=== PATIENT | male | born 1995 | race Caucasian/White ===

== ENCOUNTER 2017-06-08 10:30 | Inpatient (IN) | payer BC ==
[~2017-06-08] VITALS: Ht 182.9 cm; Wt 76.4 kg
[2017-06-08 10:31] VITALS: BP 132/79; PULSE 66; RESP 16; TEMP 98.7; O2SAT 100
[2017-06-08] MEDS ORDERED: CELE20TA PO (10:39)
--- NOTE | 2017-06-08 10:57 | PD ---
HPI Chief Complaint: Psychiatric Symptoms Time Seen by Provider: 10:41 Travel History International Travel<30 days: No Contact w/Intl Traveler<30days: No Traveled to known affect area: No History of Present Illness HPI Patient is a 22-year-old male who presents to emergency room for psychiatric evaluation. Patient reports that he has had long-standing depression due to his basic training. Patient reports that he has been seeing a therapist at [facility], Maribel Sepulveda and has been taking Celexa. Patient reports that he continues to have increased depression and negative thoughts. Patient was sent to the emergency room by Maribel Sepulveda for inpatient admission for psychiatric evaluation. Patient reports suicidal thoughts with no active suicidal plans. He denies any homicidal thoughts. Patient denies use of drugs or alcohol PFS Past Medical History Depression: Yes Past Surgical History Other Surgery: Yes (Vanessa SKINNER ) Social History Alcohol Use: No Tobacco Use: No Substance Use: No Allergies-Medications (Allergen,Severity, Reaction): Uncoded Allergies: SEAFOOD (Allergy, Severe, Anaphylaxis, 06/08/17) Reported Meds & Prescriptions Reported Meds & Active Scripts Active Reported Celexa (Citalopram Hydrobromide) 20 Mg Tab 20 Mg PO DAILY Review of Systems General / Constitutional: No: Fever Eyes: No: Visual changes HENT: No: Headaches Cardiovascular: No: Chest Pain or Discomfort Respiratory: No: Shortness of Breath Gastrointestinal: No: Abdominal Pain Genitourinary: No: Dysuria Musculoskeletal: No: Pain Skin: No Rash Neurologic: No: Weakness Psychiatric: Positive: Depression, Suicidal Ideations, No: Substance Abuse, Homicidal Ideation Endocrine: No: Polydipsia Hematologic/Lymphatic: No: Easy Bruising Physical Exam Narrative GENERAL: NAD SKIN: Focused skin assessment warm/dry. HEAD: Atraumatic. Normocephalic. EYES: Pupils equal and round. No scleral icterus. No injection or drainage. ENT: No nasal bleeding or discharge. Mucous membranes pink and moist. NECK: Trachea midline. No JVD. CARDIOVASCULAR: Regular rate and rhythm. No murmur appreciated. RESPIRATORY: No accessory muscle use. Clear to auscultation. Breath sounds equal bilaterally. GASTROINTESTINAL: Abdomen soft, non-tender, nondistended. Hepatic and splenic margins not palpable. MUSCULOSKELETAL: No obvious deformities. No clubbing. No cyanosis. No edema. NEUROLOGICAL: Awake and alert. No obvious cranial nerve deficits. Motor grossly within normal limits. Normal speech. PSYCHIATRIC: Flat mood and affect; +SI, -HI Data Data Last Documented VS Vital Signs Date Time Temp Pulse Resp B/P (MAP) Pulse Ox O2 Delivery O2 Flow Rate FiO2 06/08/17 10:43 16 06/08/17 10:31 98.7 66 132/79 (96) 100 Room Air Orders Orders Complete Blood Count With Diff (06/08/17 10:41) Comprehensive Metabolic Panel (06/08/17 10:41) Psych Screen (06/08/17 10:41) Drug Screen, Random Urine (06/08/17 10:41) Alcohol (Ethanol) (06/08/17 10:41) Salicylates (Aspirin) (06/08/17 10:41) Tylenol (Acetaminophen) (06/08/17 10:41) Labs Laboratory Tests Test 06/08/17 10:45 06/08/17 10:50 Urine Opiates Screen NEG Urine Barbiturates Screen NEG Urine Amphetamines Screen NEG Urine Benzodiazepines Screen NEG Urine Cocaine Screen NEG Urine Cannabinoids Screen NEG White Blood Count 5.0 TH/MM3 Red Blood Count 5.35 MIL/MM3 Hemoglobin 14.2 GM/DL Hematocrit 43.1 % Mean Corpuscular Volume 80.7 FL Mean Corpuscular Hemoglobin 26.6 PG Mean Corpuscular Hemoglobin Concent 33.0 % Red Cell Distribution Width 13.5 % Platelet Count 148 TH/MM3 Mean Platelet Volume 9.4 FL Neutrophils (%) (Auto) 50.3 % Lymphocytes (%) (Auto) 36.0 % Monocytes (%) (Auto) 8.6 % Eosinophils (%) (Auto) 4.3 % Basophils (%) (Auto) 0.8 % Neutrophils # (Auto) 2.5 TH/MM3 Lymphocytes # (Auto) 1.8 TH/MM3 Monocytes # (Auto) 0.4 TH/MM3 Eosinophils # (Auto) 0.2 TH/MM3 Basophils # (Auto) 0.0 TH/MM3 CBC Comment DIFF FINAL Differential Comment Blood Urea Nitrogen 11 MG/DL Creatinine 1.08 MG/DL Random Glucose 90 MG/DL Total Protein 7.4 GM/DL Albumin 4.3 GM/DL Calcium Level 9.1 MG/DL Alkaline Phosphatase 100 U/L Aspartate Amino Transf (AST/SGOT) 11 U/L Alanine Aminotransferase (ALT/SGPT) 18 U/L Total Bilirubin 0.2 MG/DL Sodium Level 138 MEQ/L Potassium Level 4.0 MEQ/L Chloride Level 104 MEQ/L Carbon Dioxide Level 28.3 MEQ/L Anion Gap 6 MEQ/L Estimat Glomerular Filtration Rate 85 ML/MIN Salicylates Level LESS THAN 1.7 MG/DL Acetaminophen Level LESS THAN 2.0 MCG/ML Ethyl Alcohol Level LESS THAN 3 MG/DL MDM Medical Decision Making Medical Screen Exam Complete: Yes Emergency Medical Condition: Yes Medical Record Reviewed: Yes Interpretation(s) Vital Signs Date Time Temp Pulse Resp B/P (MAP) Pulse Ox O2 Delivery O2 Flow Rate FiO2 06/08/17 10:43 16 06/08/17 10:31 98.7 66 16 132/79 (96) 100 Room Air Differential Diagnosis Depression, suicidal thoughts Narrative Course 22-year-old male who presents to emergency room at request of Maribel Sepulveda, patient's therapist, for inpatient psychiatric evaluation for suicidal ideations. Screening labs were ordered, patient was placed under Tang acts while in the emergency room. Plan to clear him for psychiatric evaluation. Patient contracts for safety at this time. Laboratory Tests Test 06/08/17 10:45 06/08/17 10:50 Urine Opiates Screen NEG (NEG) Urine Barbiturates Screen NEG (NEG) Urine Amphetamines Screen NEG (NEG) Urine Benzodiazepines Screen NEG (NEG) Urine Cocaine Screen NEG (NEG) Urine Cannabinoids Screen NEG (NEG) White Blood Count 5.0 TH/MM3 (4.0-11.0) Red Blood Count 5.35 MIL/MM3 (4.50-5.90) Hemoglobin 14.2 GM/DL (13.0-17.0) Hematocrit 43.1 % (39.0-51.0) Mean Corpuscular Volume 80.7 FL (80.0-100.0) Mean Corpuscular Hemoglobin 26.6 PG (27.0-34.0) Mean Corpuscular Hemoglobin Concent 33.0 % (32.0-36.0) Red Cell Distribution Width 13.5 % (11.6-17.2) Platelet Count 148 TH/MM3 (150-450) Mean Platelet Volume 9.4 FL (7.0-11.0) Neutrophils (%) (Auto) 50.3 % (16.0-70.0) Lymphocytes (%) (Auto) 36.0 % (9.0-44.0) Monocytes (%) (Auto) 8.6 % (0.0-8.0) Eosinophils (%) (Auto) 4.3 % (0.0-4.0) Basophils (%) (Auto) 0.8 % (0.0-2.0) Neutrophils # (Auto) 2.5 TH/MM3 (1.8-7.7) Lymphocytes # (Auto) 1.8 TH/MM3 (1.0-4.8) Monocytes # (Auto) 0.4 TH/MM3 (0-0.9) Eosinophils # (Auto) 0.2 TH/MM3 (0-0.4) Basophils # (Auto) 0.0 TH/MM3 (0-0.2) CBC Comment DIFF FINAL Differential Comment Blood Urea Nitrogen 11 MG/DL (7-18) Creatinine 1.08 MG/DL (0.60-1.30) Random Glucose 90 MG/DL (74-106) Total Protein 7.4 GM/DL (6.4-8.2) Albumin 4.3 GM/DL (3.4-5.0) Calcium Level 9.1 MG/DL (8.5-10.1) Alkaline Phosphatase 100 U/L (45-117) Aspartate Amino Transf (AST/SGOT) 11 U/L (15-37) Alanine Aminotransferase (ALT/SGPT) 18 U/L (12-78) Total Bilirubin 0.2 MG/DL (0.2-1.0) Sodium Level 138 MEQ/L (136-145) Potassium Level 4.0 MEQ/L (3.5-5.1) Chloride Level 104 MEQ/L (98-107) Carbon Dioxide Level 28.3 MEQ/L (21.0-32.0) Anion Gap 6 MEQ/L (5-15) Estimat Glomerular Filtration Rate 85 ML/MIN (>89) Salicylates Level LESS THAN 1.7 MG/DL Acetaminophen Level LESS THAN 2.0 MCG/ML Ethyl Alcohol Level LESS THAN 3 MG/DL (0-5) Patient medically cleared for psychiatric evaluation at this time. Lisset Marley DO Jun 08, 2017 10:57
[2017-06-08 11:15] LABS: AUTOMATED NEUTROPHIL # 2.5 TH/MM3 (1.8-7.7); BASOPHIL % 0.8 % (0.0-2.0); EOSINOPHIL # 0.2 TH/MM3 (0-0.4); EOSINOPHIL % 4.3 % (0.0-4.0); HEMATOCRIT 43.1 % (39.0-51.0); HEMO FLAGS DIFF FINAL; LYMPHOCYTE # 1.8 TH/MM3 (1.0-4.8); MEAN CELL VOLUME 80.7 FL (80.0-100.0); MEAN CORPUSCULAR HEMOGLOBIN 26.6 PG (27.0-34.0); MONO % 8.6 % (0.0-8.0); NEUT % 50.3 % (16.0-70.0); PLATELET COUNT 148 TH/MM3 (150-450); RED BLOOD COUNT 5.35 MIL/MM3 (4.50-5.90); RED CELL DISTRIBUTION WIDTH 13.5 % (11.6-17.2)
[2017-06-08 11:47] LABS: ANION GAP 6 MEQ/L (5-15); AST (GOT) 11 U/L (15-37); BICARBONATE 28.3 MEQ/L (21.0-32.0); BLOOD UREA NITROGEN 11 MG/DL (7-18); CHLORIDE 104 MEQ/L (98-107); GLOMERULAR FILTRATION RATE 85 ML/MIN (>89); SODIUM (NA) 138 MEQ/L (136-145)
[2017-06-08 11:49] LABS: ALCOHOL LESS THAN 3 MG/DL (0-5)
[2017-06-08 11:51] LABS: ALKALINE PHOSPHATASE 100 U/L (45-117); ALT (GPT) 18 U/L (12-78); TOTAL BILIRUBIN ADULT 0.2 MG/DL (0.2-1.0)
[2017-06-08 11:53] LABS: ACETAMINOPHEN LESS THAN 2.0 MCG/ML (10.0-30.0)
[2017-06-08 14:06] VITALS: BP 138/84; PULSE 68; RESP 18; TEMP 98.6; O2SAT 100
[2017-06-08] MEDS ORDERED: ALUMINUM/MAGNESIUM/SIMETH 30 ML CUP PO PRN (15:15)
[2017-06-08] MEDS ORDERED: MAGNESIUM HYDROXIDE SUSP 30 ML CUP PO PRN (15:15)
[2017-06-08] MEDS ORDERED: LORazepam 1 MG TAB PO PRN (15:15)
[2017-06-08] MEDS ORDERED: LORazepam 2 MG/ML VIAL IM PRN (15:15)
[2017-06-08] MEDS ORDERED: ACETAMINOPHEN 325 MG TAB PO PRN (15:15)
[2017-06-08] MEDS ORDERED: hydrOXYzine HCL 50 MG TAB PO PRN (15:15)
--- NOTE | 2017-06-08 15:26 | HHI.HP ---
Provisional Diagnosis Admission Date June 08, 2017 [place]. Major depression, recurrent, severe Certification of Person's Competence To Provide Express and Informed Consent I have personally examined Willem Yeager , a person being served at [facility] on, Jun 08, 2017 15:16. Express and informed consent means consent voluntarily given in writing, by a competent person, after sufficient explanation and disclosure of the subject matter involved to enable the person to make a knowing and willful decision without any element of force, fraud, deceit, duress, or other form of constraint or coercion. This person is 18 years of age or older, is not now known to be incompetent to consent to treatment with a guardian advocate, and does not have a health care surrogate or proxy currently making medical treatment decisions. I have found this person to be one of the following: [x] Competent to provide express and informed consent, as defined above, for voluntary admission to this facility and is competent to provide express and informed consent for treatment. He/she has the consistent capacity to make well reasoned, willful, and knowing decisions concerning his or her medical or mental health treatment. The person fully and consistently understands the purpose of the admission for examination/placement and is fully capable of personally exercising all rights assured under [place] Incompetent to provide express and informed consent to voluntary admission, and this is incompetent to provide express and informed consent to treatment. The person must be transferred to involuntary status and a petition for a guardian advocate filed with the Circuit Court. [] Refusing to provide express and informed consent to voluntary admission but is competent to provide express and informed consent for treatment. The person must be discharged or transferred to involuntary status. Form shall be completed within 24 hours of a person's arrival at the receiving facility and filed in the clinical record of each person: 1. Admitted on a voluntary basis 2. Permitted to provide express and informed consent to his/her own treatment 3. Allowed to transfer from involuntary to voluntary status 4. Prior to permitting a person to consent to his or her own treatment after having been previously found incompetent to consent to treatment. History of Present Illness Capacity: Has Capacity HPI 22-year-old male Tang acted by one of our emergency department physicians for depression with suicidal ideation. 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 Over the last 3 months he has been increasingly depressed with frequent if not daily suicidal thoughts. He has come home to [place], where his parents now live in [facility] [address] [place]. He is not use to their new home, where they have resided for 3 months. He has not spoken to them about the specifics of his depression as he does not wish to worry them. However, he describes multiple symptoms of depression including depressed mood, anxiety, suicidal ideation, loss of energy, loss of self-esteem, feelings of confusion or inability to concentrate, social withdrawal, anhedonia, feelings of hopelessness and helplessness, sleep disturbance and appetite disturbance. He is unable to contract for safety at this time, although he is wanting help. The patient was started on 10 mg of Celexa approximately 6 weeks ago. He was eventually moved up to 20 mg of Celexa, which he believes he has been taking for 2-3 weeks. It has not made a significant difference and this physician read a letter written by the therapist of the patient at [facility], because of her concern. The patient does not use drugs or alcohol. He was rejected recently by a girl he was interested in dating. Review of Systems Psychiatric: COMPLAINS OF: Anxiety, Depression, Suicidal Ideation Except as stated in HPI: all other systems reviewed are Neg Past Psych History Psychological trauma history No known psychological trauma. Violence risk - others (6 mos) Minimal Violence risk - self (6 mos) High Substance Abuse History Drugs/Alcohol past 12 months Denied Past Family Social History Uncoded Allergies: SEAFOOD (Allergy, Severe, Anaphylaxis, 06/08/17) Reported Medications Citalopram (Celexa) 20 Mg Tab, 20 MG PO DAILY for Control Depression, #30 TAB 0 Refills 06/08/17 Family Psych History Positive for anxiety disorders. Social History Raised in [place]. Currently a [employer]in at [employer]. Does not use or abuse alcohol and drugs. Is not currently employed. Has 2 siblings. Both parents are and live in [facility] [place]. Father is a radiologist chief of breast imaging. Patient's Strengths (min. 2) Verbal and resilient. Physical Exam GENERAL: SKIN: Warm and dry. HEAD: Normocephalic. EYES: No scleral icterus. No injection or drainage. NECK: Supple, trachea midline. No JVD or lymphadenopathy. CARDIOVASCULAR: Regular rate and rhythm without murmurs, gallops, or rubs. RESPIRATORY: Breath sounds equal bilaterally. No accessory muscle use. GASTROINTESTINAL: Abdomen soft, non-tender, nondistended. MUSCULOSKELETAL: No cyanosis, or edema. BACK: Nontender without obvious deformity. No CVA tenderness. Vital Signs Vital Signs Date Time Temp Pulse Resp B/P (MAP) Pulse Ox O2 Delivery O2 Flow Rate FiO2 06/08/17 14:06 98.6 68 18 138/84 (102) 100 Room Air Lab Results Test 06/08/17 10:45 06/08/17 10:50 Urine Opiates Screen NEG Urine Barbiturates Screen NEG Urine Amphetamines Screen NEG Urine Benzodiazepines Screen NEG Urine Cocaine Screen NEG Urine Cannabinoids Screen NEG White Blood Count 5.0 TH/MM3 Red Blood Count 5.35 MIL/MM3 Hemoglobin 14.2 GM/DL Hematocrit 43.1 % Mean Corpuscular Volume 80.7 FL Mean Corpuscular Hemoglobin 26.6 PG Mean Corpuscular Hemoglobin Concent 33.0 % Red Cell Distribution Width 13.5 % Platelet Count 148 TH/MM3 Mean Platelet Volume 9.4 FL Neutrophils (%) (Auto) 50.3 % Lymphocytes (%) (Auto) 36.0 % Monocytes (%) (Auto) 8.6 % Eosinophils (%) (Auto) 4.3 % Basophils (%) (Auto) 0.8 % Neutrophils # (Auto) 2.5 TH/MM3 Lymphocytes # (Auto) 1.8 TH/MM3 Monocytes # (Auto) 0.4 TH/MM3 Eosinophils # (Auto) 0.2 TH/MM3 Basophils # (Auto) 0.0 TH/MM3 CBC Comment DIFF FINAL Differential Comment Blood Urea Nitrogen 11 MG/DL Creatinine 1.08 MG/DL Random Glucose 90 MG/DL Total Protein 7.4 GM/DL Albumin 4.3 GM/DL Calcium Level 9.1 MG/DL Alkaline Phosphatase 100 U/L Aspartate Amino Transf (AST/SGOT) 11 U/L Alanine Aminotransferase (ALT/SGPT) 18 U/L Total Bilirubin 0.2 MG/DL Sodium Level 138 MEQ/L Potassium Level 4.0 MEQ/L Chloride Level 104 MEQ/L Carbon Dioxide Level 28.3 MEQ/L Anion Gap 6 MEQ/L Estimat Glomerular Filtration Rate 85 ML/MIN Salicylates Level LESS THAN 1.7 MG/DL Acetaminophen Level LESS THAN 2.0 MCG/ML Ethyl Alcohol Level LESS THAN 3 MG/DL Mental Status Examination Appearance: Appropriate Consciousness: Alert Orientation: x4 Motor Activity: Normal gait Speech: Unremarkable Language: Adequate Fund of Knowledge: Adequate Attention and Concentration: Adequate Memory: Unremarkable Mood: Sad, Anxious Affect: Sad, Anxious Thought Process & Associations: Intact Thought Content: Appropriate Hallucination Type: None Delusion Type: None Suicidal Ideation: Yes Suicidal Plan: No Suicidal Intention: No Homicidal Ideation: No Homicidal Plan: No Homicidal Intention: No Insight: Fair Judgment: Adequate Assessment & Plan Problem List: (1) Severe recurrent major depression without psychotic features ICD Codes: F33.2 - Major depressive disorder, recurrent severe without psychotic features Assessment & Plan Estimated LOS: days. 22-year-old male with increasing symptoms of depression and frequent suicidal thoughts over the last 3 months. Patient states he has been dealing with depression since the age of 16 but this recent bout is likely the worst he has experienced. Because of his age group and the chronicity of the symptoms as well as the severity of his condition, he is felt to be at high risk for self-harm. He also does not have sufficient family support because he has not made them aware of his feelings of desperation. For these reasons he is being admitted for further evaluation and treatment. This physician has ordered a CBC and comprehensive metabolic panel to determine if any infectious process or metabolic process is causing or contributing to his depression. Additionally, we are ordering a thyroid stimulating hormone level, vitamin B-12 level and vitamin D level, to determine if deficiencies in these areas is causing or contributing to his depression. This physician is further ordering an EKG to determine the patient's cardiac conduction status prior to making significant changes in his psychotropic medicines, which can adversely affect the electrical system of his heart. This physician discussed the patient's current and recent behavior with his nurse, Denis. Finally, case management will be involved to assist with information gathering and further disposition planning. His Celexa will be changed to Lexapro. Kp Silveira MD Jun 08, 2017 15:26
[2017-06-08 18:27] VITALS: BP 130/83; PULSE 72; RESP 18; TEMP 97.7; O2SAT 100
[2017-06-08] MEDS: ESCITALOPRAM OXALATE 10 MG TAB PO SCH (21:32)
[2017-06-09 06:08] VITALS: BP 117/69; PULSE 88; RESP 16; TEMP 97.9; O2SAT 99
--- NOTE | 2017-06-09 11:04 | PD.TTN ---
Patient Problems 1. Discharge planning 2. Medication compliance 3. Knowledge deficit 4. Lack of coping skills Progress Toward Goals Provider Present: Dr. Farshad Constantino Provider Input: Dr. Constantino's treatment team met to discuss treatment plan, medication and discharge. Patient is new and will need to be accessed. Nurse(s) Input: Patient's nurse Maribel reports patient came in for depression that he stated he has been dealing with since age 15. Patient has a flat affect but is pleasant/cooperative. Psychiatric Counselors Present: Minerva Abdullahi [facility] Psych Therapist Input: Patient seen today. Patient presents depressed, sad, childlike, affect flat. Patient's speech is clear, organized and pressured. Patient is denying suicidal and homicidal ideation. Patient does not present internally stimulated or with any delusional content. Patient states he needs his medication adjusted. Group Spec/RT/OT/MARIEE Present: JAYLENE Buchanan Group Spec/RT/OT/MARIEE Input: Patient is new. Minerva Abdullahi [facility] Jun 09, 2017 11:04
[2017-06-09 12:03] LABS: AUTOMATED NEUTROPHIL # 2.7 TH/MM3 (1.8-7.7); BASOPHIL % 0.7 % (0.0-2.0); EOSINOPHIL # 0.2 TH/MM3 (0-0.4); EOSINOPHIL % 4.2 % (0.0-4.0); HEMATOCRIT 43.6 % (39.0-51.0); HEMO FLAGS DIFF FINAL; LYMPH % 31.7 % (9.0-44.0); LYMPHOCYTE # 1.6 TH/MM3 (1.0-4.8); MEAN CELL VOLUME 80.5 FL (80.0-100.0); MEAN CORPUSCULAR HGB CONC 33.6 % (32.0-36.0); MONO % 10.2 % (0.0-8.0); NEUT % 53.2 % (16.0-70.0); PLATELET COUNT 172 TH/MM3 (150-450); RED BLOOD COUNT 5.41 MIL/MM3 (4.50-5.90); RED CELL DISTRIBUTION WIDTH 14.1 % (11.6-17.2)
[2017-06-09 12:31] LABS: ALT (GPT) 19 U/L (12-78); ANION GAP 7 MEQ/L (5-15); AST (GOT) 17 U/L (15-37); BICARBONATE 28.8 MEQ/L (21.0-32.0); BLOOD UREA NITROGEN 13 MG/DL (7-18); CHLORIDE 102 MEQ/L (98-107); GLOMERULAR FILTRATION RATE 76 ML/MIN (>89); POTASSIUM 4.1 MEQ/L (3.5-5.1); SODIUM (NA) 138 MEQ/L (136-145)
[2017-06-09 12:33] LABS: HEMOGLOBIN A1a 1.1 %; HEMOGLOBIN A1b 1.5 %; HEMOGLOBIN Ao 86.3 %; HEMOGLOBIN LA1C 1.8 %; HEMOGLOBIN P3 3.3 %
[2017-06-09 12:57] LABS: ALKALINE PHOSPHATASE 100 U/L (45-117); HDL CHOLESTEROL 49.1 MG/DL (40.0-60.0); LDL CHOLESTEROL 82 MG/DL (0-99); TOTAL BILIRUBIN ADULT 0.4 MG/DL (0.2-1.0)
--- NOTE | 2017-06-09 14:27 | HHI.PYPN ---
Subjective Chief Complaint: Depression Remarks Patient seen and examined. Chart reviewed. I note treatment summary form from patient's outpatient therapist, Meka Sepulveda, suggesting inpatient hospitalization on return to [place]. Dr. Silveira's H&P reviewed. Case discussed with nursing staff. On my examination today, patient reports episodic low mood stretching back to mid-teens. He has had periods of remission of mood symptoms, but I can elicit no history of hypomania/[place], no does he have any hypomanic/manic symptoms now. He denies any current or prior psychotic symptoms such as hallucinations or delusions. He reports that in addition to low mood he has ongoing sleep disturbance. He reports intermittent SI of several months duration. He says that when he is contemplating suicide, he thinks about shooting himself and so has already given his 2 guns to a grandparent and friend for safekeeping. He denies any other suicidal plans. He denies SI presently but does note that "I hate my life." He says that the main thing that has prevented him from acting on suicidal ideation is fear/uncertainty about the afterlife. He also cites concern for impact on family as a protective factor. He reports "I have zero anxiety." He does report trauma history during basic training with resultant nightmares and hyperarousal/ avoidance, however he insists that these symptoms are not severe enough to be a focus for treatment. He was started on Lexapro by Dr. Silveira and denies side effects from this medication. He has no physical complaints. Patient is hopeful for discharge before the . PPsychH: History of depression. Follows with psychotherapist Derick through [facility]. Reports that he has Ms. Sepulveda's cell-phone number and has worked on safety plan with her. He denies a history of previous suicide attempts. He was started on Celexa about 1 month ago, which had been titrated to 20mg. He reports that he felt great on this medication for about the first week but then returned to "normal" by which he means his depressed baseline. He has experienced significant sexual side effects with Celexa. FH: Sister with depression and anxiety on Zoloft and Wellbutrin, reportedly recently required psychiatric admission herself. Denies a FH of suicide. CD: Denies substance use. Says that he has never had any alcohol. SH: Single. No children. No pets. Was reportedly trying to get a service dog so he would have someone who depended upon him to reduce suicide risk. 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 Firearms have reportedly been secured. PMH: Denies any medical history and takes no medications besides psychotropics. With patient's permission, obtained collateral information from patient's psychotherapist, Ms. Sepulveda, at [phone]. She has worked with the patient for 3 years off and on, primarily with a cognitive framework. 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 She notes that after this his attitude changed and his mood worsened. She does suspect there is a component of post-traumatic stress. She was not suspicious of the schizophrenia prodrome. She notes that he has been reliable and steadfast in utilizing their safety plan, but she came to feel that his depressive symptoms were preventing progress in their psychotherapeutic work. She recommended that the patient see a non- psychiatrist physician as no psychiatrist is available in their area, who started patient on the Celexa. She notes that he has been able to maintain a decent level of function at school and in other respects and can utilize coping skills well. She is hopeful that he will remain on the unit voluntarily for medication adjustment, but she is not supportive on involuntary commitment if patient requests discharge because she fears that the patient would resent involuntary placement and might make a retributive suicide attempt after discharge. She would be supportive of residential treatment if patient were willing, but she suspects he will not even consider this until summer. Ms. Sepulveda confirms that patient has no prior history of self-harm and confirms that patient's firearms have been secured. Review of Systems Except as stated in HPI: all other systems reviewed are Neg Mental Status Examination Appearance: Appropriate Consciousness: Alert Orientation: x4 Motor Activity: Normal gait, Other (no motor abnormalities noted) Speech: Unremarkable Language: Adequate Fund of Knowledge: Adequate Attention and Concentration: Adequate Memory: Unremarkable Mood: Other (depressed) Affect: Other (consistent with stated mood) Thought Process & Associations: Intact, Logical, Linear Thought Content: Appropriate Hallucination Type: None Delusion Type: None Suicidal Ideation: No Suicidal Plan: No Suicidal Intention: No Homicidal Ideation: No Homicidal Plan: No Homicidal Intention: No Insight: Adequate Judgment: Adequate Results Labs Item Value Date Time White Blood Count 5.0 TH/MM3 06/09/17 1059 Hemoglobin 14.6 GM/DL 06/09/17 1059 Platelet Count 172 TH/MM3 06/09/17 1059 Sodium Level 138 MEQ/L 06/09/17 1059 Potassium Level 4.1 MEQ/L 06/09/17 1059 Chloride Level 102 MEQ/L 06/09/17 1059 Carbon Dioxide Level 28.8 MEQ/L 06/09/17 1059 Blood Urea Nitrogen 13 MG/DL 06/09/17 1059 Creatinine 1.19 MG/DL 06/09/17 1059 Estimat Glomerular Filtration Rate 76 ML/MIN L 06/09/17 1059 Random Glucose 79 MG/DL 06/09/17 1059 Hemoglobin A1c 5.4 % 06/09/17 1059 Aspartate Amino Transf (AST/SGOT) 17 U/L 06/09/17 1059 Alanine Aminotransferase (ALT/SGPT) 19 U/L 06/09/17 1059 Alkaline Phosphatase 100 U/L 06/09/17 1059 Vitamin B12 Level 787 PG/ML 06/09/17 1059 25-Hydroxy Vitamin D Total 27.4 ng/ML L 06/09/17 1059 Thyroid Stimulating Hormone 3rd Gen 2.200 uIU/ML 06/09/17 1059 Urine Opiates Screen NEG 06/08/17 1045 Urine Barbiturates Screen NEG 06/08/17 1045 Urine Amphetamines Screen NEG 06/08/17 1045 Urine Cannabinoids Screen NEG 06/08/17 1045 Urine Benzodiazepines Screen NEG 06/08/17 1045 Urine Cocaine Screen NEG 06/08/17 1045 Ethyl Alcohol Level LESS THAN 3 MG/DL 06/08/17 1050 Labs reviewed. CBC unremarkable. CMP reveals mildly decreased GFR. B12 within normal limits. TSH within normal limits. Vitamin D level slightly low. Toxicology negative and alcohol level undetectable. EKG reveals sinus rhythm with shortened SD interval and tall, peaked T waves although potassium level is normal. QTcH 377 ms. Vitals/IOs Vital Signs Date Time Temp Pulse Resp B/P (MAP) Pulse Ox O2 Delivery O2 Flow Rate FiO2 06/09/17 06:08 97.9 88 16 117/69 (85) 99 06/08/17 14:06 Room Air Assessment & Plan Problem List: (1) Severe recurrent major depression without psychotic features ICD Codes: F33.2 - Major depressive disorder, recurrent severe without psychotic features Assessment & Plan I concur with Dr. Silveira that patient seems to be experiencing a major depressive episode, severe without evidence of psychosis. I also suspect there is a component of post-traumatic stress that patient is presently minimizing. Patient has been switched to Lexapro from Celexa. I have had a lengthy discussion regarding the risks, benefits and alternatives to treatment with the Lexapro. We have discussed the risk of ongoing sexual side effects (patient's main side effect with Celexa) with the Lexapro, and I have also discussed that given his inadequate response to Celexa it might make sense to switch to a more dissimilar SSRI than the Lexapro, which of course if an enantiomer of Celexa. We also review various augmentation strategies that might be considered. After a thorough review of all of patient's options, patient prefers to stick with the Lexapro, and I will continue this agent as ordered. I will add vitamin D supplement. Continue to monitor on inpatient unit. Encouraged participation in groups and unit activities, and patient notes that he has been attending these regularly. Continue other medications and care as ordered. Justification for Cont. Inpt. Monitoring for impairments in safety. Discharge Planning Pending outcome of observation. Request HC Surrog/Guard Advoc?: No Tonio Soliz MD Jun 09, 2017 14:27
[2017-06-09 18:55] VITALS: BP 123/75; PULSE 71; RESP 16; TEMP 98.1; O2SAT 97
[2017-06-09] MEDS: ESCITALOPRAM OXALATE 10 MG TAB PO SCH (21:08)
[2017-06-10 06:08] VITALS: BP 121/67; PULSE 73; RESP 16; TEMP 97.4; O2SAT 99
[2017-06-10] MEDS: CHOLECALCIFEROL (VIT D3) 400 UNIT TAB PO SCH (07:56)
--- NOTE | 2017-06-10 11:28 | HHI.PYPN ---
Subjective Chief Complaint: Depression Remarks Patient seen and examined with nurse. Chart reviewed. Case discussed with nursing staff. No behavioral issues overnight. On my examination today, patient is calm and cooperative with examination. There is no evidence of self care deficit. He denies any suicidal or homicidal ideation. He says that his mood is somewhat improved in the milieu. He does relate some distress at having witnessed techs attempting to redirect another patient. He explains that it seemed to him that tech was trying to exert control (inappropriately, it would seem, in patient's estimation) over patient. Ms. Sepulveda had shared with me that one common theme in their therapy is patient's resentment of authority. Denies side effects from medications. Still not interested in any medication adjustment. No physical complaints. He is hopeful for discharge soon. He is agreeable to having staff reach out the parents prior to discharge to discuss safety planning. Review of Systems Except as stated in HPI: all other systems reviewed are Neg Mental Status Examination Appearance: Appropriate Consciousness: Alert Orientation: x4 Motor Activity: Normal gait, Other (no abnormal motor movements noted) Speech: Unremarkable Language: Adequate Fund of Knowledge: Adequate Attention and Concentration: Adequate Memory: Unremarkable Mood: Other (dysphoric but improving) Affect: Appropriate Thought Process & Associations: Intact, Logical, Goal directed, Linear Thought Content: Appropriate Hallucination Type: None Delusion Type: None Suicidal Ideation: No Suicidal Plan: No Suicidal Intention: No Homicidal Ideation: No Homicidal Plan: No Homicidal Intention: No Insight: Adequate Judgment: Adequate Results Labs Labs reviewed. No new labs. Vitals/IOs Vital Signs Date Time Temp Pulse Resp B/P (MAP) Pulse Ox O2 Delivery O2 Flow Rate FiO2 06/10/17 06:08 97.4 73 16 121/67 (85) 99 06/08/17 14:06 Room Air Assessment & Plan Problem List: (1) Severe recurrent major depression without psychotic features ICD Codes: F33.2 - Major depressive disorder, recurrent severe without psychotic features Assessment & Plan Continue Lexapro as ordered per patient preference. I did again suggest alternative pharmacologic approaches for patient's presenting complaints, but patient does not wish to make a change. My interaction with patient today lends credence to Ms. Sepulveda's concerns that retaining the patient involuntarily might provoke a retributive gesture after discharge. I am somewhat hopeful he can be convinced to remain for further treatment and observation. I did discuss residential treatment in the abstract, and he has no interest in this presently. Continue other medications and care as ordered. Nurse to obtain release of information so that we may reach out parents. Justification for Cont. Inpt. Monitoring for impairments in safety, none noted. Discharge Planning Pending outcome of observation. Request HC Surrog/Guard Advoc?: No Tonio Soliz MD Jun 10, 2017 11:28
--- NOTE | 2017-06-10 13:29 | EKG ---
Date Performed: 06/09/2017 Time Performed: 13:33:59 PTAGE: 22 years EKG: Sinus rhythm WITH SHORT [place] INTERVAL ST ELEVATION, PROBABLY EARLY REPOLARIZATION TALL T-WAVES, SUGGESTS HYPERKALEM IA ABNORMAL ECG NO PREVIOUS TRACING DOCTOR: Tonio Kitchen Interpretating Date/Time 06/10/2017 13:28:31
[2017-06-10 18:02] VITALS: BP 123/57; PULSE 66; RESP 16; TEMP 98.6; O2SAT 98
[2017-06-10] MEDS: ESCITALOPRAM OXALATE 10 MG TAB PO SCH (21:20)
[2017-06-11 05:33] VITALS: BP 117/62; PULSE 73; RESP 18; TEMP 97.6; O2SAT 100
[2017-06-11] MEDS ORDERED: ESCI10TA PO (12:56)
[2017-06-11] MEDS ORDERED: VITD400 PO (12:56)
--- NOTE | 2017-06-11 12:56 | HHI.DS ---
Psychiatry Discharge Summary Inpatient Psychiatric care?: Yes Advance Directive: No Reason Not Provided: refused Mental Health AdvanceDirective: No Health Care Proxy: No Admission Admission Date Jun 08, 2017 at 15:15 Admission Diagnosis: (1) Severe recurrent major depression without psychotic features ICD Code: F33.2 - Major depressive disorder, recurrent severe without psychotic features Brief History 22-year-old male Tang acted by one of our emergency department physicians for depression with suicidal ideation. 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 Over the last 3 months he has been increasingly depressed with frequent if not daily suicidal thoughts. He has come home to [place], where his parents now live in [facility] [place]. He is not use to their new home, where they have resided for 3 months. He has not spoken to them about the specifics of his depression as he does not wish to worry them. However, he describes multiple symptoms of depression including depressed mood, anxiety, suicidal ideation, loss of energy, loss of self-esteem, feelings of confusion or inability to concentrate, social withdrawal, anhedonia, feelings of hopelessness and helplessness, sleep disturbance and appetite disturbance. He is unable to contract for safety at this time, although he is wanting help. The patient was started on 10 mg of Celexa approximately 6 weeks ago. He was eventually moved up to 20 mg of Celexa, which he believes he has been taking for 2-3 weeks. It has not made a significant difference and this physician read a letter written by the therapist of the patient at [facility], because of her concern. The patient does not use drugs or alcohol. He was rejected recently by a girl he was interested in dating. Tobacco Use In Past 30 Days: No Tobacco Past 30 Days Alcohol Use: Never Hospital Course Patient was admitted to a locked, inpatient psychiatric unit. Appropriate precautions were in place throughout patient's hospital stay. Patient was seen and examined on the unit by psychiatry and also visited by counselor. Psychotropic medications were adjusted. Patient tolerated medication changes well without side effects. Patient had improvement in presenting psychiatric symptomatology during the course of his hospital stay. There was no evidence of any suicidality or homicidality on the inpatient unit. There was no evidence of any self-care deficit. Patient remained in good behavioral control and was medication compliant. Collateral was obtained from patient's psychotherapist. On the day of discharge: Patient seen and examined with nurse. Chart reviewed. Case discussed with nursing staff. No behavioral issues overnight. Case discussed in treatment team with counselor and occupational therapist. On my examination today, the patient is requesting discharge from the inpatient psychiatric unit. He denies any suicidal or homicidal ideation, intent or plan on direct questioning and contracts for safety. He reports that his mood is improved, and I can elicit no severe depressive or hypomanic/manic symptoms in this patient at this time. He denies any audiovisual hallucinations and I can elicit no delusional material. There is no evidence of any impairment in reality construction. He denies any side effects from medications. We have discussed titrating his Lexapro to 20 mg daily after several more days of 10 mg daily. He has no physical complaints. With the patient's permission, I have obtained collateral information from his mother and father over the phone. Parents have no concerns about the patient being a risk of harm to self/others. I have instructed parents to secure the home of all potential means of harm to self/others in advance of the patient's return there out of an abundance of caution. There are no guns in the home. I have discussed with parents the mechanisms in place to have the patient brought in for psychiatric evaluation should the need arise including Tang act and ex parte. Suicide and violence risk assessment on day of discharge both suggest lower imminent risk, and the patient's level of function is adequate for outpatient care. The patient does not meet criteria for involuntary psychiatric hospitalization at this time. I have recommended that he consider remaining on the inpatient unit for further observation and medication adjustments, but he has declined. I have no legal basis to retain this patient on the inpatient unit any longer. The patient will be discharged into parent's care today with plans for psychiatric follow-up in [place]. I have counseled the patient regarding warning signs for need to return to the psychiatric emergency room as part of the general safety plan and have recommended that he continue to utilize the specific safety plan he has with his psychotherapist. Results Blood Pressure 117 / 62 Vital Signs Date Time Temp Pulse Resp B/P (MAP) Pulse Ox O2 Delivery O2 Flow Rate FiO2 06/11/17 05:33 97.6 73 18 117/62 (80) 100 06/08/17 14:06 Room Air Laboratory Tests Test 06/09/17 10:59 Monocytes (%) (Auto) 10.2 % (0.0-8.0) Eosinophils (%) (Auto) 4.2 % (0.0-4.0) Estimat Glomerular Filtration Rate 76 ML/MIN (>89) Triglycerides Level 166 MG/DL (42-150) 25-Hydroxy Vitamin D Total 27.4 ng/ML (30-100) Laboratory Results Test 06/09/17 10:59 Cholesterol Level 164 MG/DL (120-200) HDL Cholesterol 49.1 MG/DL (40.0-60.0) Hemoglobin A1c 5.4 % (4.3-6.0) LDL Cholesterol 82 MG/DL (0-99) Triglycerides Level 166 MG/DL (42-150) Summary of Procedures None done Imaging None done Pending results at discharge: No Medications # of Antipsychotic meds at D/C: 0 Approp Antipsych med options 1 - Minimum of three failed multiple trials of monotherapy. 2 - Documented plan to taper to monotherapy due to previous use of multiple meds OR cross-taper in progress at D/C. 3 - Documentation of augmentation of Clozapine. 4 - Justification other than those listed in allowable values 1-3, document here : Discharge Discharge Date: Jun 11, 2017 Discharge Diagnosis: (1) Severe recurrent major depression without psychotic features Diagnosis: Principal ICD Code: F33.2 - Major depressive disorder, recurrent severe without psychotic features Pt Condition on Discharge: Stable Discharge Disposition: Discharge Home Discharge Instructions Diet Instructions: As Tolerated, No Restrictions Activities you can perform: Weight Bearing as Farhana Scheduled Appointment: Psychiatric follow up in [place] New Orders: BASIC METABOLIC PROF - 1 Week VITAMIN D,25-HYDROXY - 2 Months New Medications: Cholecalciferol (Vitamin D3) 400 Unit Tab 400 UNITS PO DAILY for Vitamin D supplement for 15 Days, #15 TAB 1 Refill Escitalopram (Escitalopram) 10 Mg Tab 10 MG PO DIRECTED for Mental Health for 15 Days, TAB 1 Refill Lexapro 10mg PO once daily x 5 days then increase to 20mg PO once daily so long as you tolerate this agent well. Discontinued Medications: Citalopram (Celexa) 20 Mg Tab 20 MG PO DAILY for Control Depression, #30 TAB 0 Refills Discharge Time > 30 minutes Mental Status Examination Appearance: Appropriate Consciousness: Alert Orientation: x4 Motor Activity: Normal gait, Other (no motoric abnormalities noted) Speech: Unremarkable Language: Adequate Fund of Knowledge: Adequate Attention and Concentration: Adequate Memory: Unremarkable Mood: Appropriate (improved versus admission) Affect: Appropriate Thought Process & Associations: Intact, Logical, Goal directed, Linear Thought Content: Appropriate Hallucination Type: None Delusion Type: None Suicidal Ideation: No Suicidal Plan: No Suicidal Intention: No Homicidal Ideation: No Homicidal Plan: No Homicidal Intention: No Insight: Adequate Judgment: Adequate Discharge/Advance Care Plan Health Problems: (1) Severe recurrent major depression without psychotic features Goals to promote your health * To prevent worsening of your condition and complications * To maintain your health at the optimal level Directions to meet your goals Take your medications as prescribed Follow your dietary instruction Follow activity as directed Keep your appointments as scheduled Take your immunizations and boosters as scheduled If your symptoms worsen call your PCP, if no PCP go to Urgent Care Center or Emergency Room For 24/ questions related to your inpatient stay or results of tests pending at discharge, please contact Dr. Tonio Soliz at Smoking is Dangerous to Your Health. Avoid second hand smoking Tonio Soliz MD Jun 11, 2017 12:56
[2017-06-11] MEDS: CHOLECALCIFEROL (VIT D3) 400 UNIT TAB PO SCH (13:39)
--- NOTE | 2017-06-11 13:48 | PD.TTN ---
Patient Problems 1. Discharge planning 2. Medication compliance 3. Knowledge deficit 4. Lack of coping skills Progress Toward Goals Provider Present: Dr. Farshad Constantino Provider Input: Dr. Constantino's treatment team met to discuss treatment plan, medication and discharge. Patient is new and will need to be accessed. 06/11/17 Patient is doing better and will be discharged to care of patient's family. Nurse(s) Input: Patient's nurse Maribel reports patient came in for depression that he stated he has been dealing with since age 15. Patient has a flat affect but is pleasant/cooperative. 06/11/17 Patient's nurse Zabrina reports patient still is depressed but has access to therapist from [facility] Maribel. Patient is medication compliant Psychiatric Counselors Present[facility] Input: Patient seen today. Patient presents depressed, sad, childlike, affect flat. Patient's speech is clear, organized and pressured. Patient is denying suicidal and homicidal ideation. Patient does not present internally stimulated or with any delusional content. Patient states he needs his medication adjusted. 06/11/17 Patient is doing better. patient is in agreement to be compliant with medication. patient states he is still depressed but not suicidal. Patient is being discharged to the care of his parents. Patient's mother Gerri Yeager [phone] was notified of discharge and stated she felt comfortable with patient being discharged home. Group Spec/RT/OT/MARIEE Present: JAYLENE Buchanan, JAYLENE Viera Group Spec/RT/OT/MARIEE Input: Patient is new. 06/11/17 Patient attends most groups and activities. Affect somewhat blunted. [facility]erv[facility] Jun 11, 2017 13:47
== END 2017-06-11 14:30 | disposition home or self-care (01) | DRG 885 ==
LOC: NEPD 10:30 → NEDA 15:15 → H260 18:10
PROVIDERS: ADMIT Psychiatry & Neurology Psychiatry; ATTEND Psychiatry & Neurology Psychiatry
DX: F33.2 Major depressive disorder, recurrent severe without psychotic features (principal); R45.851 Suicidal ideations; Z81.8 Family history of other mental and behavioral disorders
CPT/HCPCS: 80053; 80061; 80307; 82306; 82607; 83036; 84443; 85025; 93005